=== PATIENT | male | born 1995 | race Hispanic/Latino ===

== ENCOUNTER 2020-07-20 04:50 | Emergency (ER) | payer SELFPAY ==
--- NOTE | 2020-07-20 06:07 | ER ---
Nurse's Notes [facility] Name: Waldemar Carballo Age: 24 yrs Sex: Male : 1995 Arrival Date: 07/20/2020 Time: 04:54 Bed 5 Private MD: Diagnosis: Allergic rhinitis, unspecified;Cough Presentation: 07/20 05:10 Chief complaint: Patient states: I have this dry cough started yesterday and today rr5 feels something stock in my throat may be it is just mucus. but now I feel fine. 05:10 Coronavirus screen: Client denies travel out of the [place] in the last 14 days. cough rr5 unrelated to allergies, shortness of breath, sore throat. Ebola Screen: Patient negative for fever greater than or equal to 101.5 degrees Fahrenheit, and additional compatible Ebola Virus Disease symptoms Patient denies exposure to infectious person. Patient denies travel to an Ebola-affected area in the 21 days before illness onset. Initial Sepsis Screen: Does the patient meet any 2 criteria? HR > 90 bpm. Does the patient have a suspected source of infection? No. Patient's initial sepsis screen is negative. Risk Assessment: Do you want to hurt yourself or someone else? Patient reports no desire to harm self or others. Onset of symptoms was July 19, 2020. 05:10 Method Of Arrival: Ambulatory rr5 05:10 Acuity: VENESSA 4 rr5 Historical: - Allergies: 05:14 Motrin; rr5 - Home Meds: 05:14 None [Active]; rr5 - PMHx: 05:14 None; rr5 - PSHx: 05:14 None; rr5 - Immunization history:: Adult Immunizations unknown. - Social history:: Smoking status: unknown Patient/guardian denies using alcohol, street drugs. Screenin:15 Abuse screen: Denies threats or abuse. Denies injuries from another. Nutritional rr5 screening: No deficits noted. Tuberculosis screening: No symptoms or risk factors identified. Fall Risk None identified. Total Liz Fall Scale indicates No Risk (0-24 pts). Assessment: 05:21 General: Appears in no apparent distress. comfortable, Behavior is calm, cooperative, rr5 appropriate for age. Pain: Denies pain. Neuro: Level of Consciousness is awake, alert, obeys commands, Oriented to person, place, time, situation. Cardiovascular: Capillary refill < 3 seconds Patient's skin is warm and dry. Respiratory: Reports cough that is Airway is patent Respiratory effort is even, unlabored, Respiratory pattern is regular, symmetrical, Breath sounds are clear. GI: Abdomen is round. : No signs and/or symptoms were reported regarding the genitourinary system. EENT: Throat is clear with gag reflex present, Reports pain in throat. Derm: Skin is intact, is healthy with good turgor, Skin temperature is warm. Musculoskeletal: Circulation, motion, and sensation intact. Capillary refill < 3 seconds. 06:21 Reassessment: Patient appears in no apparent distress at this time. Patient and/or jb4 family updated on plan of care and expected duration. Pain level reassessed. Patient is alert, oriented x 3, equal unlabored respirations, skin warm/dry/pink. Pt verbalized understanding of d/c and follow up instructions. Denies questions or concerns. Ambulated out of ED with steady gait. Vital Signs: 05:10 BP 144 / 88; Pulse 105; Resp 19; Temp 98.5; Pulse Ox 98% ; Weight 111.13 kg; Height 5 rr5 ft. 9 in. (175.26 cm); Pain 0/10; 06:21 BP 133 / 89; Pulse 90; Resp 16; Pulse Ox 100% on R/A; jb4 05:10 Body Mass Index 36.18 (111.13 kg, 175.26 cm) rr5 ED Course: 04:54 Patient arrived in ED. cl3 04:58 Freddy Sandoval, RN is Primary Nurse. rr5 05:10 Patient has correct armband on for positive identification. Placed in gown. Bed in low rr5 position. Call light in reach. Pulse ox on. NIBP on. 05:10 No provider procedures requiring assistance completed. rr5 05:14 Triage completed. rr5 05:14 Arm band placed on right wrist. rr5 06:00 Pam Peñaloza FNP-C is [facility]. kb 06:00 Curt Flores MD is Attending Physician. kb 06:21 Patient did not have IV access during this emergency room visit. jb4 Administered Medications: No medications were administered Outcome: 06:06 Discharge ordered by . kb 06:21 Discharged to home ambulatory. jb4 06:21 Condition: stable 06:21 Discharge instructions given to patient, Instructed on discharge instructions, follow up and referral plans. medication usage, Demonstrated understanding of instructions, follow-up care, medications. 06:22 Patient left the ED. jb4 Signatures: Pam Peñaloza, BLOCK CUBER-C BLOCK CUBER-Ron Johnson RN RN jb4 Freddy Sandoval RN RN rr5 Geno Jay cl3
--- NOTE | 2020-07-20 06:07 | EDPHYS ---
Physician Documentation [facility] Name: Waldemar Carballo Age: 24 yrs Sex: Male : 1995 Arrival Date: 07/20/2020 Time: 04:54 Bed 5 Private MD: ED Physician Curt Flores HPI: 07/20 06:19 This 24 yrs old Male presents to ER via Ambulatory with complaints of Cough, kb Sore Throat. 06:19 The patient or guardian reports cough, that is intermittent, described as mild, with no kb sputum. Onset: The symptoms/episode began/occurred this morning. Severity of symptoms: At their worst the symptoms were moderate, in the emergency department the symptoms have improved. Modifying factors: The symptoms are alleviated by nothing, the symptoms are aggravated by nothing. Associated signs and symptoms: Pertinent positives: sore throat, Pertinent negatives: chest pain, diarrhea, ear ache, fever, nausea, rhinorrhea, vomiting. The patient has not experienced similar symptoms in the past. The patient has not recently seen a physician. Pt reports dry throat for a day, woke up with a dry cough this morning and the coughing fit caused him to feel short of breath. States "I feel great now. I don't feel sick at all. My throat feels normal." Pt reports he has seasonal allergies and works outside so they have been acting up lately. Denies fever. . Historical: - Allergies: 05:14 Motrin; rr5 - Home Meds: 05:14 None [Active]; rr5 - PMHx: 05:14 None; rr5 - PSHx: 05:14 None; rr5 - Immunization history:: Adult Immunizations unknown. - Social history:: Smoking status: unknown Patient/guardian denies using alcohol, street drugs. ROS: 06:19 Constitutional: Negative for fever, chills, and weight loss, Cardiovascular: Negative kb for chest pain, palpitations, and edema, Abdomen/GI: Negative for abdominal pain, nausea, vomiting, diarrhea, and constipation, Back: Negative for injury and pain, MS/Extremity: Negative for injury and deformity, Skin: Negative for injury, rash, and discoloration, Neuro: Negative for headache, weakness, numbness, tingling, and seizure. 06:19 ENT: Positive for sore throat. 06:19 Respiratory: Positive for cough, Negative for dyspnea on exertion, hemoptysis, orthopnea, pleurisy, shortness of breath, sputum production, wheezing. Exam: 06:19 Constitutional: This is a well developed, well nourished patient who is awake, alert, kb and in no acute distress. Head/Face: Normocephalic, atraumatic. ENT: Nares patent. No nasal discharge, no septal abnormalities noted. Tympanic membranes are normal and external auditory canals are clear. Oropharynx with no redness, swelling, or masses, exudates, or evidence of obstruction, uvula midline. Mucous membranes moist. Neck: Trachea midline, no thyromegaly or masses palpated, and no cervical lymphadenopathy. Supple, full range of motion without nuchal rigidity, or vertebral point tenderness. No Meningismus. Chest/axilla: Normal chest wall appearance and motion. Nontender with no deformity. No lesions are appreciated. Cardiovascular: Regular rate and rhythm with a normal S1 and S2. No gallops, murmurs, or rubs. Normal PMI, no JVD. No pulse deficits. Respiratory: Lungs have equal breath sounds bilaterally, clear to auscultation and percussion. No rales, rhonchi or wheezes noted. No increased work of breathing, no retractions or nasal flaring. Abdomen/GI: Soft, non-tender, with normal bowel sounds. No distension or tympany. No guarding or rebound. No evidence of tenderness throughout. Back: No spinal tenderness. No costovertebral tenderness. Full range of motion. Skin: Warm, dry with normal turgor. Normal color with no rashes, no lesions, and no evidence of cellulitis. MS/ Extremity: Pulses equal, no cyanosis. Neurovascular intact. Full, normal range of motion. Neuro: Awake and alert, GCS 15, oriented to person, place, time, and situation. Cranial nerves II-XII grossly intact. Motor strength 5/5 in all extremities. Sensory grossly intact. Cerebellar exam normal. Normal gait. Vital Signs: 05:10 BP 144 / 88; Pulse 105; Resp 19; Temp 98.5; Pulse Ox 98% ; Weight 111.13 kg; Height 5 rr5 ft. 9 in. (175.26 cm); Pain 0/10; 06:21 BP 133 / 89; Pulse 90; Resp 16; Pulse Ox 100% on R/A; jb4 05:10 Body Mass Index 36.18 (111.13 kg, 175.26 cm) rr5 MDM: 06:00 Patient medically screened. kb 06:17 Data reviewed: vital signs, nurses notes. Data interpreted: Pulse oximetry: on room air kb is 98 %. Interpretation: normal. 06:18 Counseling: I had a detailed discussion with the patient and/or guardian regarding: the kb historical points, exam findings, and any diagnostic results supporting the discharge/admit diagnosis, the need for outpatient follow up, a family practitioner, to return to the emergency department if symptoms worsen or persist or if there are any questions or concerns that arise at home. Administered Medications: No medications were administered Disposition: 06:27 Co-signature as Attending Physician, Curt Flores MD. lenore Disposition: 07/20/20 06:06 Discharged to Home. Impression: Allergic rhinitis, unspecified, Cough. - Condition is Stable. - Discharge Instructions: Cough, Adult, [id number], Allergies, [id number]. - Medication Reconciliation Form, Thank You Letter, Antibiotic Education, Prescription Opioid Use, Family Work Release form. - Follow up: Emergency Department; When: As needed; Reason: Worsening of condition. Follow up: Private Physician; When: 2 - 3 days; Reason: Recheck today's complaints, Continuance of care, Re-evaluation by your physician. - Notes: Take an antihistamine daily (Jazmin, Zyrtec or Claritin) Take Mucinex as needed for congestion Signatures: Pam Peñaloza, CRISTELA BOB-Curt Burciaga MD MD pkl Ron Leal, RN RN jb4 Freddy Sandoval RN RN rr5 Corrections: (The following items were deleted from the chart) 06:22 06:06 07/20/2020 06:06 Discharged to Home. Impression: Allergic rhinitis, unspecified; jb4 Cough. Condition is Stable. Forms are Medication Reconciliation Form, Thank You Letter, Antibiotic Education, Prescription Opioid Use. Follow up: Emergency Department; When: As needed; Reason: Worsening of condition. Follow up: Private Physician; When: 2 - 3 days; Reason: Recheck today's complaints, Continuance of care, Re-evaluation by your physician. kb
[2020-07-20 16:37] VITALS: TEMP 98.5
[2020-07-20 16:38] VITALS: BP 133/89; O2SAT 100
== END 2020-07-20 06:22 | disposition home or self-care (01) ==
LOC: ER 04:50
DX: J30.9 Allergic rhinitis, unspecified (principal); Z88.6 Allergy status to analgesic agent
CPT/HCPCS: 99283